=== PATIENT | female | born 1965 | race Hispanic/Latino ===

== ENCOUNTER 2018-02-03 18:23 | Observation (INO) | payer BC ==
[~2018-02-03] VITALS: Ht 162.6 cm; Wt 125.7 kg
[2018-02-03] MEDS ORDERED: MORPHINE SULFATE 2 MG/ML SYR IV STA (19:20)
[2018-02-03] MEDS ORDERED: SODIUM CHLORIDE 0.9% 1000ML 1,000 ML IV STA (19:20)
[2018-02-03] MEDS ORDERED: PROMETHAZINE 25MG/ NS 50ML (IV) IV ONE (19:30)
[2018-02-03] MEDS ORDERED: ONDANSETRON HCL INJ 2 MG/ML VIAL IV PRN (22:00)
[2018-02-03] MEDS ORDERED: CEFTRIAXONE SOD 1 GM VIAL IM ONE (22:00)
[2018-02-03] MEDS: MORPHINE SULFATE 2 MG/ML SYR IV PRN (22:25)
[2018-02-04] VITALS (9 sets, daily range): BP systolic 118–169; BP diastolic 62–78
[2018-02-04] MEDS: SODIUM CHLORIDE 0.9% 1000ML 1,000 ML IV SCH ×4 (00:26→20:34)
[2018-02-04] MEDS ORDERED: SODIUM CHLORIDE 0.9% 1000ML 1,000 ML ONE ×3 (00:33→20:39)
[2018-02-04] MEDS: MORPHINE SULFATE 2 MG/ML SYR IV PRN (04:07)
[2018-02-04] MEDS ORDERED: MORPHINE SULFATE 2 MG/ML SYR ONE (04:12)
[2018-02-04 07:30] LABS: BASOPHILS % 0.3 % (0.0-1.0); EOSINOPHILS # (AUTO) 0.2 (0.0-0.4); EOSINOPHILS % 2.7 % (0.0-6.0); HEMATOCRIT 37.1 % (34.2-44.1); HEMOGLOBIN 12.2 g/dL (12.0-16.0); LYMPHOCYTES # (AUTO) 2.9 (1.0-3.2); LYMPHOCYTES % 40.1 % (18.0-39.1); MEAN CORPUSCULAR HEMOGLOBIN 29.2 pg (28-32); MEAN CORPUSCULAR HGB CONC 32.9 g/dL (31-35); MEAN CORPUSCULAR VOLUME 88.8 fL (81-99); MONOCYTES # (AUTO) 0.5 (0.2-0.8); MONOCYTES % 6.6 % (4.4-11.3); NEUTROPHILS # (AUTO) 3.7 (2.1-6.9); PLATELET COUNT 209 x10e3/uL (140-360); RED BLOOD COUNT 4.18 x10e6/uL (3.6-5.1); RED CELL DISTRIBUTION WIDTH 13.7 % (11.7-14.4)
[2018-02-04 07:51] LABS: ANION GAP 8.8 mmol/L (8-16); BLOOD UREA NITROGEN 10 mg/dL (7-26); BUN/CREATININE RATIO 14 (6-25); CALCIUM 8.6 mg/dL (8.4-10.2); CARBON DIOXIDE 31 mmol/L (22-29); CHLORIDE 108 mmol/L (98-107); CHOL/HDL RATIO 6.1 (3.0-3.6); CHOLESTEROL 230 MD/DL (0-199); CREATININE, SERUM 0.73 mg/dL (0.57-1.11); EST GLOMERULAR FILTRATION RATE > 60 ML/MIN (60-); GLUCOSE 130 mg/dL (74-118); HDL CHOLESTEROL 38 MG/DL (40-60); LDL CHOLESTEROL 138 MG/DL (60-130); MAGNESIUM 1.9 MG/DL (1.3-2.1); PHOSPHORUS 3.8 MG/DL (2.3-4.7); POTASSIUM 4.8 mmol/L (3.5-5.1); SODIUM 143 mmol/L (136-145); TRIGLYCERIDES 269 MG/DL (0-149)
--- NOTE | 2018-02-04 08:01 | History and Physical ---
PRIMARY CARE PHYSICIAN: None CHIEF COMPLAINT: Abdominal pain. HISTORY OF PRESENT ILLNESS: This is a 52-year-old woman with a history of hypothyroidism, now developing right lower quadrant abdominal pain. The patient stated that the pain started in the right lower abdomen and radiated up around to the back ongoing for 3 days with associated nausea, vomiting and diarrhea. She admits to fever at home of 101.5. She went to the urgent care facility, and found to have a urinary tract infection. Admitted for further evaluation and management. PAST MEDICAL HISTORY: Hypothyroidism, hyperlipidemia, Saldana's palsy in . PAST SURGICAL HISTORY: times 2, pilonidal cyst removal, ankle surgery. ALLERGIES: PER ELECTRONIC MEDICAL RECORD. FAMILY HISTORY/SOCIAL HISTORY: Patient is single. She has 2 children. Occasional alcohol. No illicits or cigarettes. MEDICATIONS: Per electronic medical record. REVIEW OF SYSTEMS: Denies any dizziness or chest pain. PHYSICAL EXAMINATION VITAL SIGNS: Reviewed. GENERAL: A tired-appearing woman resting in bed. HEENT: Anicteric. Pupils respond to light. No oral lesions. Dry mucous membranes. CARDIOVASCULAR: Normal S1 and S2. LUNGS: Moderate breath sounds. ABDOMEN: Soft and nondistended. She has tenderness in the right lower quadrant. She has tenderness in the right flank on percussion. EXTREMITIES: No edema. NEUROLOGICAL: Alert and oriented times 3. Moving all extremities. SKIN: Dry. PSYCHIATRIC: Normal affect. LABS: Reviewed. MEDICATIONS: Reviewed. ASSESSMENT AND PLAN: This is a 52-year-old woman with: 1. Right-sided pyelonephritis/urinary tract infection: Will treat her with ceftriaxone and obtain cultures. The patient states that she had a fever at home. Here she has been afebrile. Will continue to follow. Give fluids as needed. 2. Fibroids: This is chronic. These are calcified. 3. Ventral hernia: Likely not related to her symptoms at this time. She can follow up outpatient for further evaluation and management. 4. Dehydration: Rehydrate. 5. Morbid obesity: Body mass index 48.1. Will screen for diabetes and obtain lipid panel. 6. Hypothyroidism: Restart home medications. 7. Prophylaxis: Will use Lovenox and Pepcid. 8. Disposition: Monitor closely. Follow up labs. Follow up cultures. Job#: [id number] [place]
[2018-02-04 08:11] LABS: THYROID STIMULATING HORMONE 8.116 uIU/mL (0.350-4.940)
[2018-02-04] MEDS: FAMOTIDINE 20 MG/2 ML VIAL IV SCH ×2 (09:44→16:34)
[2018-02-04] MEDS ORDERED: ACETAMINOPHEN 325 MG TAB PO PRN (15:45)
[2018-02-04] MEDS ORDERED: ACETAMINOPHEN 325 MG TAB PO ONE (15:45)
[2018-02-04] MEDS: ENOXAPARIN SOD INJ 40 MG/0.4 ML SYR SC SCH (16:34)
[2018-02-05] VITALS (7 sets, daily range): BP systolic 137–196; BP diastolic 63–87
[2018-02-05] MEDS: SODIUM CHLORIDE 0.9% 1000ML 1,000 ML IV SCH ×4 (03:47→22:04)
--- NOTE | 2018-02-05 08:04 | Progress Note ---
DATE: February 05, 2018 TIME: 7:34 a.m. OVERNIGHT: Feeling a little better. REVIEW OF SYSTEMS: Denies any dizziness. PHYSICAL EXAMINATION VITAL SIGNS: Reviewed. GENERAL: A tired-appearing woman resting in bed. HEENT: Anicteric. CARDIOVASCULAR: Normal S1 and S2. LUNGS: Moderate breath sounds. ABDOMEN: Soft and nondistended. She has tenderness in the right lower quadrant and right flank. EXTREMITIES: No edema. SKIN: Dry. PSYCHIATRIC: Normal affect. NEUROLOGICAL: Alert and oriented times 3. LABS: Reviewed. MEDICATIONS: Reviewed. ASSESSMENT: A 52-year-old woman with: 1. Right-sided pyelonephritis. 2. Urinary tract infection. 3. Fibroids. 4. Ventral hernia. 5. Dehydration. 6. Morbid obesity. 7. Hypothyroidism. 8. Prediabetes. 9. Hyperlipidemia. PLAN 1. Continue IV antibiotics. 2. Hemoglobin A1c is 6.3. She does have prediabetes. 3. LDL is 130. Not a goal. Will utilize statin medication. Triglycerides are 269. 4. Follow up cultures. Continue care. Job#: [id number] [place]
[2018-02-05] MEDS: LISINOPRIL 10 MG TAB PO SCH (08:30)
[2018-02-05] MEDS: FAMOTIDINE 20 MG/2 ML VIAL IV SCH ×2 (08:30→16:27)
[2018-02-05 11:00] LABS: CLARITY,URINE SL CLOUDY (CLEAR); COLOR,URINE YELLOW (YELLOW)
[2018-02-05 11:01] LABS: BILIRUBIN,URINE NEGATIVE (NEGATIVE); KETONES,URINE NEGATIVE (NEGATIVE); LEUKOCYTE ESTERASE ,URINE NEGATIVE (NEGATIVE); NITRITE,URINE NEGATIVE (NEGATIVE); PROTEIN,URINE DIPSTICK TRACE (NEGATIVE); URINE UROBILINOGEN 0.2 mg/dL (0.2 - 1)
[2018-02-05 11:04] LABS: BACTERIA,URINE RARE /HPF; EPITHELIAL CELLS,URINE FEW /LPF
[2018-02-05 11:05] LABS: AMORPHOUS SEDIMENT,URINE RARE (FEW); TRANSITIONAL EPI CELLS,URINE RARE
[2018-02-05] MEDS: CEFTRIAXONE SOD 1 GM VIAL IV SCH (14:00)
[2018-02-05] MEDS: LABETALOL HCL 100 MG TAB PO SCH ×2 (14:49→22:03)
[2018-02-05] MEDS: MORPHINE SULFATE 2 MG/ML SYR IV PRN (15:15)
[2018-02-05] MEDS: ENOXAPARIN SOD INJ 40 MG/0.4 ML SYR SC SCH (16:27)
[2018-02-05] MEDS ORDERED: LABETALOL HCL 100 MG TAB PO ONE (21:00)
[2018-02-05] MEDS: SIMVASTATIN 20 MG TAB PO SCH (22:03)
[2018-02-06] VITALS (7 sets, daily range): BP systolic 133–187; BP diastolic 80–90
[2018-02-06 07:09] LABS: BASOPHILS % 0.3 % (0.0-1.0); EOSINOPHILS # (AUTO) 0.2 (0.0-0.4); EOSINOPHILS % 1.9 % (0.0-6.0); HEMATOCRIT 38.1 % (34.2-44.1); HEMOGLOBIN 12.7 g/dL (12.0-16.0); LYMPHOCYTES # (AUTO) 2.6 (1.0-3.2); LYMPHOCYTES % 32.1 % (18.0-39.1); MEAN CORPUSCULAR HEMOGLOBIN 29.1 pg (28-32); MEAN CORPUSCULAR HGB CONC 33.3 g/dL (31-35); MEAN CORPUSCULAR VOLUME 87.2 fL (81-99); MONOCYTES # (AUTO) 0.6 (0.2-0.8); NEUTROPHILS # (AUTO) 4.7 (2.1-6.9); NEUTROPHILS % 58.3 % (38.7-80.0); PLATELET COUNT 203 x10e3/uL (140-360); RED BLOOD COUNT 4.37 x10e6/uL (3.6-5.1); RED CELL DISTRIBUTION WIDTH 13.6 % (11.7-14.4)
[2018-02-06 07:30] LABS: ANION GAP 11.5 mmol/L (8-16); BLOOD UREA NITROGEN 7 mg/dL (7-26); BUN/CREATININE RATIO 10 (6-25); CARBON DIOXIDE 29 mmol/L (22-29); CHLORIDE 105 mmol/L (98-107); CREATININE, SERUM 0.68 mg/dL (0.57-1.11); EST GLOMERULAR FILTRATION RATE > 60 ML/MIN (60-); GLUCOSE 134 mg/dL (74-118); POTASSIUM 4.5 mmol/L (3.5-5.1); SODIUM 141 mmol/L (136-145)
[2018-02-06 07:49] LABS: FREE THYROXINE INDEX 1.5288 (1.4-3.8); THYROID STIMULATING HORMONE 3.758 uIU/mL (0.350-4.940)
--- NOTE | 2018-02-06 08:34 | Progress Note ---
DATE: ADDENDUM TO PROGRESS NOTE Check labs and also check thyroid function tests in detail with a TSH. Job#: [id number]
--- NOTE | 2018-02-06 08:35 | Progress Note ---
DATE: February 06, 2018 TIME: 6:00 a.m. OVERNIGHT: Feeling a little better. REVIEW OF SYSTEMS: Denies any dizziness. PHYSICAL EXAMINATION: VITAL SIGNS: Have been reviewed. GENERAL APPEARANCE: Tired-appearing woman resting in bed. HEENT: Anicteric. CARDIOVASCULAR: Normal S1 and S2. LUNGS: Moderate breath sounds. ABDOMEN: Soft, nondistended. She has mild tenderness in the right lower quadrant and right flank. EXTREMITIES: No edema. SKIN: Dry. PSYCHIATRIC: Normal affect. NEUROLOGICAL: Alert and oriented x3. LABS: Reviewed. MEDICATIONS: Reviewed. ASSESSMENT: A 52-year-old woman. 1. Right-sided pyelonephritis. 2. Urinary tract infection. 3. Fibroid. 4. Ventral hernia. 5. Dehydration. 6. Morbid obesity. 7. Hypothyroidism. 8. Prediabetes. 9. Hyperlipidemia. PLAN: 1. Continue IV antibiotics. 2. Hemoglobin A1c 6.3, LDL 130. Continue diabetic diet. 3. Continue statin medication. 4. Continue IV ceftriaxone. 5. Continue IV fluids. 6. Patient is improving and feeling better. Discharge planning. Job#: [id number]
[2018-02-06] MEDS: FAMOTIDINE 20 MG/2 ML VIAL IV SCH ×2 (08:41→17:18)
[2018-02-06] MEDS: LISINOPRIL 10 MG TAB PO SCH (08:41)
[2018-02-06] MEDS: LABETALOL HCL 100 MG TAB PO SCH ×2 (08:41→21:49)
[2018-02-06] MEDS: SODIUM CHLORIDE 0.9% 1000ML 1,000 ML IV SCH ×2 (14:59→22:45)
[2018-02-06] MEDS: CEFTRIAXONE SOD 1 GM VIAL IV SCH (14:59)
[2018-02-06] MEDS: ENOXAPARIN SOD INJ 40 MG/0.4 ML SYR SC SCH (17:18)
[2018-02-06] MEDS: SIMVASTATIN 20 MG TAB PO SCH (21:49)
[2018-02-07] VITALS: BP 154/74
[2018-02-07 04:00] VITALS: BP 155/72
[2018-02-07] MEDS: SODIUM CHLORIDE 0.9% 1000ML 1,000 ML IV SCH (04:33)
[2018-02-07] MEDS ORDERED: SIMVASTATIN20 MG PO (06:18)
[2018-02-07] MEDS ORDERED: LISINOPRIL10 MG PO (06:18)
[2018-02-07] MEDS ORDERED: LABETALOL HCL100 MG PO (06:18)
[2018-02-07] MEDS ORDERED: KEFLEX500 MG PO (06:19)
[2018-02-07 07:59] VITALS: BP 172/72
[2018-02-07 08:03] VITALS: BP 172/72
[2018-02-07] MEDS: FAMOTIDINE 20 MG/2 ML VIAL IV SCH (08:52)
[2018-02-07] MEDS: LISINOPRIL 10 MG TAB PO SCH (08:53)
[2018-02-07] MEDS: LABETALOL HCL 100 MG TAB PO SCH (08:53)
--- NOTE | 2018-02-10 07:42 | Discharge Summary ---
PRINCIPAL DIAGNOSES 1. Right-sided pyelonephritis. 2. Urinary tract infection. 3. Fibroid. 4. Ventral hernia. 5. Dehydration. 6. Morbid obesity. 7. Prediabetes. SECONDARY DIAGNOSIS: Hyperlipidemia. CHIEF COMPLAINT: Right-sided flank pain. HISTORY OF PRESENT ILLNESS: A 52-year-old woman with right-sided flank pain. Refer to the H and P for further details. HOSPITAL COURSE: The patient was found to have right-sided pyelonephritis and urinary tract infection treated with IV antibiotics. Had prediabetes. Hemoglobin A1c was 6.3, LDL 130 and treated with diabetic diet. Antibiotics were utilized in the hospitalization with IV ceftriaxone. The patient also received IV fluids. Did well and subsequently transitioned out of the hospital. DISCHARGE MEDICATIONS: Per electronic medical record. FOLLOWUP: Primary care doctor in 1 week. CONDITION ON DISCHARGE: Stable and improving. DISCHARGE LOCATION: Home. CHASITY VEE MD Job#: [id number] [place]
== END 2018-02-07 10:35 | disposition home or self-care (01) ==
LOC: FSED 18:23 → IMCU 02-04 00:13 → MED/SURG 02-06 09:38
PROVIDERS: ADMIT Internal Medicine; ATTEND Internal Medicine
DX: N10 Acute pyelonephritis (principal); E86.0 Dehydration; E03.9 Hypothyroidism, unspecified; E78.5 Hyperlipidemia, unspecified; K43.9 Ventral hernia without obstruction or gangrene; E66.01 Morbid (severe) obesity due to excess calories; Z68.42 Body mass index [BMI] 45.0-49.9, adult; R73.09 Other abnormal glucose; J84.10 Pulmonary fibrosis, unspecified
CPT/HCPCS: 36415 ×2; 74177; 76830; 80048 ×2; 80053; 80061; 81001; 81003; 83036; 83735; 84100; 84436; 84443 ×2; 84479; 85025 ×3; 87086; 96360; 96365; 96374; 99284; G0378 ×4; J0696 ×3; J1650 ×3; J2270 ×3; J2405; J2550; J7030 ×5

== ENCOUNTER 2018-09-13 20:26 | Emergency (ER) | payer BC ==
[~2018-09-13] VITALS: Ht 162.6 cm; Wt 125.6 kg
[~2018-09-13 20:26] MED LIST: KEFLEX500 MG PO; LABETALOL HCL100 MG PO; LISINOPRIL10 MG PO; SIMVASTATIN20 MG PO
--- OUTSIDE RECORDS SUMMARY | 2018-09-13 20:29 | XMS REPORT | Continuity of Care Document ---
Author Author [facility] Interface Address Unknown Phone Unavailable Problems Problem Status Onset Date Classification Date Reported Comments Source Pain in Throat 12/19/2017 Problem 12/19/2017 [facility] Influenza-like Symptoms 12/19/2017 Problem 12/19/2017 [facility] Ear Pressure Sensation 12/19/2017 Problem 12/19/2017 [facility] Elevated Blood-pressure Reading without Diagnosis of Hypertension 12/19/2017 Problem 12/19/2017 [facility] Body Mass Index 40+ - Severely Obese 12/19/2017 Problem 12/19/2017 [facility] Influenza-like symptoms 12/19/2017 Diagnosis 12/19/2017 [facility] Pain in throat 12/19/2017 Diagnosis 12/19/2017 [facility] Ear pressure sensation 12/19/2017 Diagnosis 12/19/2017 [facility] Elevated blood-pressure reading without diagnosis of hypertension 12/19/2017 Diagnosis 12/19/2017 [facility] Body mass index 40+ - severely obese 12/19/2017 Diagnosis 12/19/2017 [facility] Hypothyroidism Problem 12/19/2017 [facility] Hyperlipidemia Problem 12/19/2017 [facility] Gastroesophageal Reflux Disease Problem 12/19/2017 [facility] Abdominal pain Active Problem 02/07/2018 [facility] Intractable vomiting Active Problem 02/07/2018 [facility] Medications Medication Details Route Status Patient Instructions Ordering Provider Order Date Source Cephalexin Monohydrate (Keflex) 500 Mg Capsule Every 12 Hours Active Artemio 02/07/2018 [facility] Labetalol Hcl 100 Mg Tablet Every 12 Hours Active Artemio 02/07/2018 [facility] Lisinopril 10 Mg Tablet Daily Active Artemio 02/07/2018 [facility] Simvastatin 20 Mg Tablet Bedtime Active Artemio 02/07/2018 [facility] atorvastatin 80 MG Oral Tablet atorvastatin 80 mg tablet Active [facility] benzonatate 200 MG Oral Capsule benzonatate 200 mg capsule Take 1 capsule 3 times a day by oral route as needed. Active [facility] Fenofibrate 54 MG Oral Tablet fenofibrate 54 mg tablet Active [facility] Levothyroxine Sodium 0.025 MG Oral Tablet levothyroxine 25 mcg tablet Active [facility] Lidocaine Hydrochloride 20 MG/ML Mucous Membrane Topical Solution Lidocaine Viscous 2 % mucosal solution Take 15 mL every 3 hours by oral route as needed. Active [facility] Omeprazole 20 MG Delayed Release Oral Capsule omeprazole 20 mg capsule,delayed release Active [facility] Allergies, Adverse Reactions, Alerts Substance Category Reaction Severity Reaction type Status Date Reported Comments Source Immunizations Immunization Date Given Site Status Last Updated Comments Source Results Order Name Results Value Reference Range Date Interpretation Comments Source RESULT negative 12/19/2017 [facility] SWAB LOCATION Left and Right tonsillar pillars 12/19/2017 [facility] Influenza A negative 12/19/2017 [facility] Influenza B negative 12/19/2017 [facility] Vital Signs Vital Sign Value Date Comments Source Diastolic (mm Hg) 80 12/19/2017 [facility] Height 64 12/19/2017 [facility] Systolic (mm Hg) 158 12/19/2017 [facility] Weight 278 12/19/2017 [facility] Encounters Location Location Details Encounter Type Encounter Number Reason For Visit Attending Provider ADM Date DC Date Status Source [place] - [facility] - [id number] Leonard, [facility]: [address] [place] [address], Ph. [id number] Nadia Leonard 12/19/2017 [facility] Discharged Inpatient (obs) [id number] CHASITY VEE MD 02/04/2018 02/07/2018 [facility] Procedures Procedure Code Date Perfomer Comments Source [facility]
--- OUTSIDE RECORDS SUMMARY | 2018-09-13 20:29 | XMS REPORT | Encounter Summary ---
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 Influenza-like symptoms benzonatate 200 mg capsule rapid flu (A+B) 2. Pain in throat sore throat: care instructions Lidocaine Viscous 2 % mucosal solution rapid strep group A, throat 3. Ear pressure sensation 4. Elevated blood-pressure reading without diagnosis of hypertension 5. Body mass index 40+ - severely obese Discussion Note Pt is in NAD; Verbalizes understanding of all instructions with no questions at this time. Plan of Care Patient Instructions Gargle and spit viscous lidocaine as needed for sore throat as directed. Take tylenol over the counter for pain/headache/fever as per pacakge insert. Take benzonatate for cough as directed. Take fluticasone as needed for congestion. [place] one spray in each nostril twice a day. Take a warm, steamy shower, blow your nose thereafter, and spray in each nostril. Tilt your head up for about 10 seconds and breath through your mouth. Do not sniff or snort the medication in or else the medication will go to your throat and not be absorbed appropriately. Take levocetirizine for allergy like symptoms like runny nose, sneezing and watery eyes. Take medications as prescribed and follow up with a PCP within 2-3 if symptoms worsen as discussed. Recommend monitor BP at home and document, bring BP log to PCP for review. Recommend follow a low sodium diet and exercise 30-45 mins/d 3-4 days a week onces symptoms resolve Reminders Provider Appointments None recorded. Lab Rapid Flu (A+B) 12/19/2017 [facility] Rapid Strep Group a, Throat 12/19/2017 [facility] Referral None recorded. Procedures None recorded. Surgeries None recorded. Imaging None recorded. Medications Name Start Date atorvastatin 80 mg tablet benzonatate 200 mg capsule Take 1 capsule 3 times a day by oral route as needed. fenofibrate 54 mg tablet levothyroxine 25 mcg tablet Lidocaine Viscous 2 % mucosal solution Take 15 mL every 3 hours by oral route as needed. omeprazole 20 mg capsule,delayed release Medications Administered None recorded. Vitals Height Weight BMI Blood Pressure 5 ft 4 in 278 lbs 47.7 kg/m2 (1) 160/85 mm[Hg] (2) 158/80 mm[Hg] Lab Results Date Name Specimen Result Interpretation Description Value Range Status Address Rapid Strep Group a, Throat Result negative [facility]: [address] [place] [address] Swab Location Left and Right tonsillar pillars [facility]: [address] [place] [address] Rapid Flu (A+B) Influenza a negative [facility]: [address] [place] [address] Influenza B negative [facility]: [address] [place] [address] Allergies Code Code System Name Reaction Severity Status Onset NKDA Problems Name Status Onset Date Source Pain in Throat Active 12/19/2017 Influenza-like Symptoms Active 12/19/2017 Ear Pressure Sensation Active 12/19/2017 Elevated Blood-pressure Reading without Diagnosis of Hypertension Active 12/19/2017 Body Mass Index 40+ - Severely Obese Active 12/19/2017 Hypothyroidism Active Hyperlipidemia Active Gastroesophageal Reflux Disease Active Procedures Date Name Performed by Information not available Vaccine List None recorded. Social History Smoking Status Never Smoker Past Encounters 12/19/2017 Influenza-like Symptoms; Pain in Throat; Ear Pressure Sensation; Elevated Blood- pressure Reading without Diagnosis of Hypertension; Body Mass Index 40+ - Severely Obese Nadia Leonard, [facility]: [address] [place] [address], Ph. History of Present Illness [id number] Reported By: Patient HPI: Quality: symptoms worse during the day. Duration: 2 days. Severity: highest temperature 99.1. Onset/Timing: first recorded today in clinic. Context: no ill contacts, no tick/insect bites, no recent travel, no new medications. Associated Symptoms: no headache, no muscle aches, no rash, no lethargy, fever/chills, cough, nasal passage blockage (stuffiness), nasal discharge; sinus pressure, post nasal drip, B/L ear pressure, sore throat, chest congestion, and body aches. Modifying Factors nothing gives relief Ear Complaint Reported By: Patient HPI: Location: bilateral. Quality: ears feel full/plugged, muffled. Severity: continuous, moderate. Duration: constant; x 2 days. Onset/Timing: worse, still present, gradual. Context: no sick contacts, no recent swimming/water in ear, no exposure to second hand smoke, no head trauma, not grinding teeth, no recent air travel. Modifying factors: does not hurt to lie on, or pull on ear, does not hurt to chew, nothing gives relief. Associated Symptoms: no discharge from the ears, no hearing loss, no ringing in the ears, no earache, no dizziness, no vertigo, no headache, no muscle aches, nose/sinus problems, popping noise in the ears, fever, chills; rhinorrhea, post nasal drip, B/L ear pressure, sore throat, chest congestion, and dry cough, body aches Review of Systems:ROS as noted in the HPI Review of Systems Basic Reported By: Patient Physical Exam Adult Basic, Adult Female Complete Reported By: Patient Constitutional: General Appearance: obese. Level of Distress: NAD. Ambulation: ambulating normally Psychiatric: Mental Status: active and alert. Orientation: to time, to place, to person [id number]-Throat: Ears: no lesions on external ear, no outer ear tenderness, EACs clear, TMs clear. Hearing: no hearing loss. Nose: no lesions on external nose, nares patent, no septal deviation, nasal passages clear, no sinus tenderness, nasal discharge--rhinorrhea, post nasal drip; pink and edematous nasal turbinates bilaterally. Lips, Teeth, and Gums: no mouth or lip ulcers, no bleeding gums, normal dentition. Oropharynx: moist mucous membranes, no erythema, no exudates, tonsils not enlarged Neck: Lymph Nodes: no cervical LAD Lungs: Respiratory effort: no dyspnea, no tachypnea, no use of accessory muscles, no intercostal retractions. Auscultation: breath sounds normal Cardiovascular: Heart Auscultation: RRR, no murmurs Neurologic: Gait and Station: normal gait, normal station
[2018-09-13] MEDS ORDERED: KETOROLAC TROMETHAMINE 60 MG/2 ML VIAL IM ONE (21:00)
--- NOTE | 2018-09-13 21:45 | Diagnostic Imaging Report ---
EXAM: CT Abdomen and Pelvis WITHOUT contrast INDICATION: Left flank pain for 2 to 3 days. ^[id number] ^[id number] COMPARISON: None. TECHNIQUE: Abdomen and pelvis were scanned utilizing a multidetector helical scanner from the lung base to the pubic symphysis without administration of IV contrast. Absence of intravenous contrast decreases sensitivity for detection of focal lesions and vascular pathology. Coronal and sagittal reformations were obtained. Routine protocol was performed. IV CONTRAST: None ORAL CONTRAST: Water COMPLICATIONS: None RADIATION DOSE: Total DLP: 835.9 mGy*cm Estimated effective dose: (DLP x 0.015 x size factor) mSv CTDIvol has been reviewed. It is below the limits set by the Radiation Protocol Committee (RPC). Dose modulation, iterative reconstruction, and/or weight based adjustment of the mA/kV was utilized to reduce the radiation dose to as low as reasonably achievable. FINDINGS: LINES and TUBES: None. LOWER THORAX: Unremarkable HEPATOBILIARY: Hypoattenuation of the liver measuring 27 Hounsfield units, compatible with steatosis. No focal hepatic lesions. No biliary ductal dilation. GALLBLADDER: Not well-visualized, possibly contracted. SPLEEN: No splenomegaly. PANCREAS: No focal masses or ductal dilatation. ADRENALS: No adrenal nodules KIDNEYS/URETERS: No hydronephrosis. No cystic or solid mass lesions. No stones. GI TRACT: No abnormal distention, wall thickening, or evidence of bowel obstruction. There are diverticula within the colon without evidence of diverticulitis. Appendix is normal. PELVIC ORGANS/BLADDER: Unremarkable. LYMPH NODES: No lymphadenopathy. VESSELS: Unremarkable. PERITONEUM / RETROPERITONEUM: No free air or fluid. BONES: There are degenerative changes in the lumbar spine. SOFT TISSUES: Fat-containing infraumbilical hernia 3.9 x 4.4 x 4.9 cm sac and 1.5 x 2 cm neck without stranding to suggest granulation. No bowel seen within. IMPRESSION: No acute abnormalities. Hepatic steatosis. Colonic diverticulosis. Signed by: DR. Garret Escobar MD on 09/13/2018 9:42 PM
[2018-09-13] MEDS ORDERED: KETOROLAC TROMETHAMINE 30 MG/ML VIAL IM STA (22:04)
[2018-09-13] MEDS ORDERED: KETOROLAC TROME10 MG PO (22:07)
[2018-09-13] MEDS ORDERED: ROBAXIN-750750 MG PO (22:07)
[2018-09-13 22:19] VITALS: BP 172/86
== END 2018-09-13 22:22 | disposition home or self-care (01) ==
LOC: FSED 20:26
DX: M54.5 Low back pain (principal); R31.9 Hematuria, unspecified; N20.0 Calculus of kidney; S39.012A Strain of muscle, fascia and tendon of lower back, initial encounter
CPT/HCPCS: 74176; 81003; 81025; 99283

== ENCOUNTER 2019-02-10 19:00 | Emergency (ER) | payer BC ==
[~2019-02-10] VITALS: Ht 162.6 cm; Wt 126.1 kg
[~2019-02-10 19:00] MED LIST changes: +KETOROLAC TROME10 MG PO; +ROBAXIN-750750 MG PO
--- OUTSIDE RECORDS SUMMARY | 2019-02-10 19:03 | XMS REPORT | Continuity of Care Document ---
Author Author [facility] Interface Address Unknown Phone Unavailable [...] Problem 12/19/2017 [facility] Abdominal pain Active Problem 09/14/2018 [facility] Intractable vomiting Active Problem 09/14/2018 [facility] Intractable vomiting Active Problem 02/07/2018 [facility] Medications Medication Details Route Status Patient Instructions Ordering Provider Order Date Source Ketorolac Tromethamine (Toradol) 10 Mg Tablet Every 6 Hours as needed for Pain Active Xavi 09/13/2018 [facility] Methocarbamol (Robaxin-750) 750 Mg Tablet Three Times A Day as needed for Yoly Active Xavi 09/13/2018 [facility] Cephalexin Monohydrate (Keflex) 500 Mg Capsule Every 12 Hours Active Artemio 02/07/2018 [facility] Labetalol Hcl 100 Mg Tablet Every 12 Hours Active Artemio 02/07/2018 [facility] Lisinopril 10 Mg Tablet Daily Active [facility] 02/07/2018 [facility] Simvastatin 20 Mg Tablet Bedtime Active [facility] 02/07/2018 [facility] Cephalexin Monohydrate (Keflex) 500 Mg Capsule Every 12 Hours Active [facility] 02/07/2018 [facility] Labetalol Hcl 100 Mg Tablet Every 12 Hours Active [facility] 02/07/2018 [facility] Lisinopril 10 Mg Tablet Daily Active [facility] 02/07/2018 [facility] Simvastatin 20 Mg Tablet Bedtime Active [facility] 02/07/2018 [facility] atorvastatin 80 MG Oral Tablet atorvastatin 80 [...] Value Reference Range Date Interpretation Comments Source Blood leukocytes automated count (number/volume) 7.97 4.8 - 10.8 02/06/2018 [facility] Blood erythrocytes automated count (number/volume) 4.37 3.6 - 5.1 02/06/2018 [facility] Blood hemoglobin measurement (moles/volume) 12.7 12.0 - 16.0 02/06/2018 [facility] Automated blood hematocrit (volume fraction) 38.1 34.2 - 44.1 02/06/2018 [facility] Automated erythrocyte mean corpuscular volume 87.2 81 - 99 02/06/2018 [facility] Automated erythrocyte mean corpuscular hemoglobin (mass per erythrocyte) 29.1 28 - 32 02/06/2018 [facility] Automated erythrocyte mean corpuscular hemoglobin concentration measurement (mass/volume) 33.3 31 - 35 02/06/2018 [facility] RDW BldCo-Rto 13.6 11.7 - 14.4 02/06/2018 [facility] Automated blood platelet count (count/volume) 203 140 - 360 02/06/2018 [facility] Automated blood segmented neutrophil count as percentage of total leukocytes 58.3 38.7 - 80.0 02/06/2018 [facility] Automated blood lymphocyte count as percentage ot total leukocytes 32.1 18.0 - 39.1 02/06/2018 [facility] Automated blood monocyte count as percentage of total leukocytes 7.0 4.4 - 11.3 02/06/2018 [facility] Automated blood eosinophil count as percentage of total leukocytes 1.9 0.0 - 6.0 02/06/2018 [facility] Automated blood basophil count as percentage of total leukocytes 0.3 0.0 - 1.0 02/06/2018 [facility] IM GRANULOCYTES % 0.4 0.0 - 1.0 02/06/2018 [facility] Automated blood neutrophil count 4.7 2.1 - 6.9 02/06/2018 [facility] Blood lymphocytes count (number/volume) 2.6 1.0 - 3.2 02/06/2018 [facility] Blood monocytes automated count (number/volume) 0.6 0.2 - 0.8 02/06/2018 [facility] Automated blood eosinophil count 0.2 0.0 - 0.4 02/06/2018 [facility] Automated blood basophil count (count/volume) 0.0 0.0 - 0.1 02/06/2018 [facility] Absolute Immature Granulocyte (auto 0.03 0 - 0.1 02/06/2018 [facility] Serum or plasma sodium measurement (moles/volume) 141 136 - 145 02/06/2018 [facility] Serum or plasma potassium measurement (moles/volume) 4.5 3.5 - 5.1 02/06/2018 [facility] Serum or plasma chloride measurement (moles/volume) 105 98 - 107 02/06/2018 [facility] Serum or plasma carbon dioxide, total measurement (moles/volume) 29 22 - 29 02/06/2018 [facility] Serum or plasma anion gap 11.5 8 - 16 02/06/2018 [facility] Serum or plasma urea nitrogen measurement (mass/volume) 7 7 - 26 02/06/2018 [facility] Serum or plasma creatinine measurement (mass/volume) 0.68 0.57 - 1.11 02/06/2018 [facility] Serum or plasma urea nitrogen/creatinine mass ratio 10 6 - 25 02/06/2018 [facility] Estimated glomerular filtration rate (GFR) determination > 60 60 02/06/2018 [facility] Glucose measurement 134 74 - 118 02/06/2018 [facility] Serum or plasma calcium measurement (mass/volume) 9.0 8.4 - 10.2 02/06/2018 [facility] Free thyroxine index 1.5288 1.4 - 3.8 02/06/2018 [facility] Serum or plasma thyroxine (T4) measurement (mass/volume) 5.88 4.5 - 10.9 02/06/2018 [facility] Serum or plasma triiodothyronine resin uptake (T3RU) 26.00 22.5 - 37.0 02/06/2018 [facility] Serum or plasma thyrotropin measurement by detection limit <=0.005 miu/l (units/volume) 3.758 0.350 - 4.940 02/06/2018 [facility] Automated blood basophil count (count/volume) Automated blood basophil count (count/volume) 0.0 0.0 - 0.1 02/06/2018 [facility] Automated blood basophil count as percentage of total leukocytes Automated blood basophil count as percentage of total leukocytes 0.3 0.0 - 1.0 02/06/2018 [facility] Automated blood eosinophil count Automated blood eosinophil count 0.2 0.0 - 0.4 02/06/2018 [facility] Automated blood eosinophil count as percentage of total leukocytes Automated blood eosinophil count as percentage of total leukocytes 1.9 0.0 - 6.0 02/06/2018 [facility] Automated blood hematocrit (volume fraction) Automated blood hematocrit (volume fraction) 38.1 34.2 - 44.1 02/06/2018 [facility] Automated blood lymphocyte count as percentage ot total leukocytes Automated blood lymphocyte count as percentage ot total leukocytes 32.1 18.0 - 39.1 02/06/2018 [facility] Automated blood monocyte count as percentage of total leukocytes Automated blood monocyte count as percentage of total leukocytes 7.0 4.4 - 11.3 02/06/2018 [facility] Automated blood neutrophil count Automated blood neutrophil count 4.7 2.1 - 6.9 02/06/2018 [facility] Automated blood platelet count (count/volume) Automated blood platelet count (count/volume) 203 140 - 360 02/06/2018 [facility] Automated blood segmented neutrophil count as percentage of total leukocytes Automated blood segmented neutrophil count as percentage of total leukocytes 58.3 38.7 - 80.0 02/06/2018 [facility] Automated erythrocyte mean corpuscular hemoglobin (mass per erythrocyte) Automated erythrocyte mean corpuscular hemoglobin (mass per erythrocyte) 29.1 28 - 32 02/06/2018 [facility] Automated erythrocyte mean corpuscular hemoglobin concentration measurement (mass/volume) Automated erythrocyte mean corpuscular hemoglobin concentration measurement (mass/volume) 33.3 31 - 35 02/06/2018 [facility] Automated erythrocyte mean corpuscular volume Automated erythrocyte mean corpuscular volume 87.2 81 - 99 02/06/2018 [facility] Blood erythrocytes automated count (number/volume) Blood erythrocytes automated count (number/volume) 4.37 3.6 - 5.1 02/06/2018 [facility] Blood hemoglobin measurement (moles/volume) Blood hemoglobin measurement (moles/volume) 12.7 12.0 - 16.0 02/06/2018 [facility] Blood leukocytes automated count (number/volume) Blood leukocytes automated count (number/volume) 7.97 4.8 - 10.8 02/06/2018 [facility] Blood lymphocytes count (number/volume) Blood lymphocytes count (number/volume) 2.6 1.0 - 3.2 02/06/2018 [facility] Blood monocytes automated count (number/volume) Blood monocytes automated count (number/volume) 0.6 0.2 - 0.8 02/06/2018 [facility] Estimated glomerular filtration rate (GFR) determination Estimated glomerular filtration rate (GFR) determination null 60 02/06/2018 [facility] Free thyroxine index Free thyroxine index 1.5288 1.4 - 3.8 02/06/2018 [facility] Glucose measurement Glucose measurement 134 74 - 118 02/06/2018 [facility] Serum or plasma anion gap Serum or plasma anion gap 11.5 8 - 16 02/06/2018 [facility] Serum or plasma calcium measurement (mass/volume) Serum or plasma calcium measurement (mass/volume) 9.0 8.4 - 10.2 02/06/2018 [facility] Serum or plasma carbon dioxide, total measurement (moles/volume) Serum or plasma carbon dioxide, total measurement (moles/volume) 29 22 - 29 02/06/2018 [facility] Serum or plasma chloride measurement (moles/volume) Serum or plasma chloride measurement (moles/volume) 105 98 - 107 02/06/2018 [facility] Serum or plasma creatinine measurement (mass/volume) Serum or plasma creatinine measurement (mass/volume) 0.68 0.57 - 1.11 02/06/2018 [facility] Serum or plasma potassium measurement (moles/volume) Serum or plasma potassium measurement (moles/volume) 4.5 3.5 - 5.1 02/06/2018 [facility] Serum or plasma sodium measurement (moles/volume) Serum or plasma sodium measurement (moles/volume) 141 136 - 145 02/06/2018 [facility] Serum or plasma thyrotropin measurement by detection limit <=0.005 miu/l (units/volume) Serum or plasma thyrotropin measurement by detection limit <=0.005 miu/l (units/volume) 3.758 0.350 - 4.940 02/06/2018 [facility] Serum or plasma thyroxine (T4) measurement (mass/volume) Serum or plasma thyroxine (T4) measurement (mass/volume) 5.88 4.5 - 10.9 02/06/2018 [facility] Serum or plasma triiodothyronine resin uptake (T3RU) Serum or plasma triiodothyronine resin uptake (T3RU) 26.00 22.5 - 37.0 02/06/2018 [facility] Serum or plasma urea nitrogen measurement (mass/volume) Serum or plasma urea nitrogen measurement (mass/volume) 7 7 - 26 02/06/2018 [facility] Serum or plasma urea nitrogen/creatinine mass ratio Serum or plasma urea nitrogen/creatinine mass ratio 10 6 - 25 02/06/2018 [facility] Urine color determination YELLOW YELLOW 02/05/2018 [facility] Urine clarity SL CLOUDY CLEAR 02/05/2018 [facility] Specific gravity of Urine by Test strip 1.025 1.010 - 1.025 02/05/2018 [facility] Urine pH measurement by automated test strip 7 5 - 7 02/05/2018 [facility] Urine leukocyte esterase detection by dipstick NEGATIVE NEGATIVE 02/05/2018 [facility] Urine nitrite detection NEGATIVE NEGATIVE 02/05/2018 [facility] Urine protein measurement by test strip (mass/volume) TRACE NEGATIVE 02/05/2018 [facility] Urine glucose detection NEGATIVE NEGATIVE 02/05/2018 [facility] Urine ketones detection by automated test strip NEGATIVE NEGATIVE 02/05/2018 [facility] Urine urobilinogen measurement by test strip (mass/volume) 0.2 0.2 - 1 02/05/2018 [facility] Urine total bilirubin measurement (mass/volume) NEGATIVE NEGATIVE 02/05/2018 [facility] Urine erythrocytes detection 1+ NEGATIVE 02/05/2018 [facility] Automated urine sediment leukocyte count by microscopy (number/high power field) NONE 0 - 5 02/05/2018 [facility] Erythrocytes detection in urine sediment by light microscopy 6-10 0 - 5 02/05/2018 [facility] Bacteria detection in urine sediment by light microscopy RARE NONE 02/05/2018 [facility] Epithelial cells detection in urine sediment by light microscopy FEW NONE 02/05/2018 [facility] Transitional cells detection in urine sediment by light microscopy RARE NONE 02/05/2018 [facility] Amorphous sediment detection in urine sediment by light microscopy RARE FEW 02/05/2018 [facility] Amorphous sediment detection in urine sediment by light microscopy Amorphous sediment detection in urine sediment by light microscopy RARE FEW 02/05/2018 [facility] Automated urine sediment leukocyte count by microscopy (number/high power field) Automated urine sediment leukocyte count by microscopy (number/high power field) NONE 0 - 5 02/05/2018 [facility] Bacteria detection in urine sediment by light microscopy Bacteria detection in urine sediment by light microscopy RARE NONE 02/05/2018 [facility] Epithelial cells detection in urine sediment by light microscopy Epithelial cells detection in urine sediment by light microscopy FEW NONE 02/05/2018 [facility] Erythrocytes detection in urine sediment by light microscopy Erythrocytes detection in urine sediment by light microscopy null 0 - 5 02/05/2018 [facility] Specific gravity of Urine by Test strip Specific gravity of Urine by Test strip 1.025 1.010 - 1.025 02/05/2018 [facility] Transitional cells detection in urine sediment by light microscopy Transitional cells detection in urine sediment by light microscopy RARE NONE 02/05/2018 [facility] Urine clarity Urine clarity SL CLOUDY CLEAR 02/05/2018 [facility] Urine color determination Urine color determination YELLOW YELLOW 02/05/2018 [facility] Urine erythrocytes detection Urine erythrocytes detection 1+ NEGATIVE 02/05/2018 [facility] Urine glucose detection Urine glucose detection NEGATIVE NEGATIVE 02/05/2018 [facility] Urine ketones detection by automated test strip Urine ketones detection by automated test strip NEGATIVE NEGATIVE 02/05/2018 [facility] Urine leukocyte esterase detection by dipstick Urine leukocyte esterase detection by dipstick NEGATIVE NEGATIVE 02/05/2018 [facility] Urine nitrite detection Urine nitrite detection NEGATIVE NEGATIVE 02/05/2018 [facility] Urine pH measurement by automated test strip Urine pH measurement by automated test strip 7 5 - 7 02/05/2018 [facility] Urine protein measurement by test strip (mass/volume) Urine protein measurement by test strip (mass/volume) TRACE NEGATIVE 02/05/2018 [facility] Urine total bilirubin measurement (mass/volume) Urine total bilirubin measurement (mass/volume) NEGATIVE NEGATIVE 02/05/2018 [facility] Urine urobilinogen measurement by test strip (mass/volume) Urine urobilinogen measurement by test strip (mass/volume) 0.2 0.2 - 1 02/05/2018 [facility] Phosphorus measurement 3.8 2.3 - 4.7 02/04/2018 [facility] Serum or plasma magnesium measurement (mass/volume) 1.9 1.3 - 2.1 02/04/2018 [facility] Serum or plasma triglyceride measurement (mass/volume) 269 0 - 149 02/04/2018 [facility] Serum or plasma cholesterol measurement (mass/volume) 230 0 - 199 02/04/2018 [facility] Serum or plasma cholesterol in LDL measurement (mass/volume) 138 60 - 130 02/04/2018 [facility] Serum or plasma cholesterol in HDL measurement (mass/volume) 38 40 - 60 02/04/2018 [facility] Serum or plasma total cholesterol/cholesterol in HDL mass ratio 6.1 3.0 - 3.6 02/04/2018 [facility] Phosphorus measurement Phosphorus measurement 3.8 2.3 - 4.7 02/04/2018 [facility] Serum or plasma cholesterol in HDL measurement (mass/volume) Serum or plasma cholesterol in HDL measurement (mass/volume) 38 40 - 60 02/04/2018 [facility] Serum or plasma cholesterol in LDL measurement (mass/volume) Serum or plasma cholesterol in LDL measurement (mass/volume) 138 60 - 130 02/04/2018 [facility] Serum or plasma cholesterol measurement (mass/volume) Serum or plasma cholesterol measurement (mass/volume) 230 0 - 199 02/04/2018 [facility] Serum or plasma magnesium measurement (mass/volume) Serum or plasma magnesium measurement (mass/volume) 1.9 1.3 - 2.1 02/04/2018 [facility] Serum or plasma total cholesterol/cholesterol in HDL mass ratio Serum or plasma total cholesterol/cholesterol in HDL mass ratio 6.1 3.0 - 3.6 02/04/2018 [facility] Serum or plasma triglyceride measurement (mass/volume) Serum or plasma triglyceride measurement (mass/volume) 269 0 - 149 02/04/2018 [facility] Hemoglobin A1c Percent 6.3 4.0 - 7.0 02/04/2018 [facility] RESULT negative 12/19/2017 [facility] SWAB LOCATION Left [...] Date Status Source [place] - [facility] - [id number] Leonard, [facility]: [id number] [place] [address], Ph. [id number] Nadia Blantony 12/19/2017 [facility] Discharged Inpatient (obs) [id number] CHASITY VEE MD 02/04/2018 02/07/2018 [facility] Departed Emergency Room [id number] DOMENICA DALAL MD 09/13/2018 09/13/2018 [facility] Procedures Procedure Code Date Perfomer Comments Source [facility]
--- OUTSIDE RECORDS SUMMARY | 2019-02-10 19:03 | XMS REPORT | Summary of Care ---
Author Author JOSE OTOOLE, CORWIN Kim Unknown Address Unknown Phone Unavailable Care Team Providers Care Cook Pressure Name Role Phone PAUL OGDEN M.D. 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 Other synovitis and tenosynovitis, right ankle and foot (727.06, M65.871) Status: Active Fracture of fibula, distal, right, closed (824.8, S82.831A) Status: Active Avulsion fracture of lateral malleolus of right fibula, closed, with routine healing, subsequent encounter (V54.19, S82.61XD) Status: Active Right shoulder pain (719.41, M25.511) Status: Active Fall (E888.9, W19.XXXA) Status: Active 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 * Start : 13-Jun-2016 Active Allergies and Adverse Reactions Name Dates Details No Known Drug Allergies (Allergy) Status: Active Past Medical History Name Dates Details History of hyperlipidemia (V12.29, Z86.39) Status: Resolved History of stroke (V12.54, Z86.73) Status: Resolved History of thyroid nodule (V12.29, Z86.39) Status: Resolved Procedures Procedure Dates Details History of Ankle surgery Completed Immunization Name Dates Details Immunizations not documented Social History Name Dates Details - Status: Name Dates Details Never smoker Vital Signs Date Test Result Details :36 BP Systolic 143 mm[Hg] Status: BP Diastolic 87 mm[Hg] Status: Height 64 in Status: Weight 272 lb Status: Body Mass Index Calculated 46.69 kg/m2 Status: Body Surface Area Calculated 2.23 m2 Status: Temperature 97.9 f Status: Heart Rate 73 /min Status: :31 BP Systolic 159 mm[Hg] Status: BP Diastolic 89 mm[Hg] Status: Weight 280 lb Status: Body Mass Index Calculated 48.06 kg/m2 Status: Body Surface Area Calculated 2.26 m2 Status: Temperature 97.7 f Status: Heart Rate 70 /min Status: Results Date Description Value Details Results not documented Plan of Care Name Dates Details Planned Observations Planned Goals not documented Interventions Provided Plan* Plan: FU w ortho regarding PT order * Ok to continue work at full duty. Instructions Name Dates Details Instructions not documented Encounters Appointment; KATYA FIGUEROA M.D. Encounter Diagnosis: Problem not documented On: 02-Jan-2017 8:45 Appointment; KATYA FIGUEROA M.D. Encounter Diagnosis: Problem not documented On: 16-Jan-2017 9:00 Appointment; KATYA FIGUEROA M.D. Encounter Diagnosis: Problem not documented On: 23-Jan-2017 13:30 Appointment; KATYA FIGUEROA M.D. Encounter Diagnosis: Problem not documented On: 01-Feb-2017 9:00 Appointment; KATYA FIGUEROA M.D. Encounter Diagnosis: Problem not documented On: 18-Feb-2017 13:30 Appointment; KATYA FIGUEROA M.D. Encounter Diagnosis: Problem not documented On: 20-Mar-2017 10:45 Appointment; KATYA FIGUEROA M.D. Encounter Diagnosis: Problem not documented On: 01-May-2017 8:00 Appointment; KATYA FIGUEROA M.D. Encounter Diagnosis: Problem not documented On: 29-Jul-2017 8:00 Appointment; KATYA FIGUEROA M.D. Encounter Diagnosis: Problem not documented On: 31-Jul-2017 8:00 Appointment; ANDREW DEL REAL M.D. Encounter Diagnosis: Problem not documented On: 25-Mar-2018 15:30 Appointment; PAUL OGDEN M.D. Encounter Diagnosis: Problem not documented On: 25-Jun-2018 9:30 Appointment; CORWIN GARCIA ANP-C Encounter Diagnosis: Problem not documented On: 07-Aug-2018 7:40 Appointment; CORWIN GARCIA ANP-C Encounter Diagnosis: Problem not documented On: 13-Aug-2018 8:20 Appointment; ABBEY GRANDE P.A. Encounter Diagnosis: Problem not documented On: 19-Aug-2018 9:00 Appointment; CORWIN GARCIA ANP-C Encounter Diagnosis: Problem not documented On: 21-Aug-2018 8:00 Appointment; ABBEY GRANDE P.A. Encounter Diagnosis: Problem not documented On: 02-Sep-2018 9:00 Appointment; CORWIN GARCIA ANP-C Encounter Diagnosis: Problem not documented On: 02-Sep-2018 12:00 Appointment; CORWIN GARCIA ANP-C Encounter Diagnosis: Problem not documented On: 16-Sep-2018 7:40 Appointment; CORWIN GARCIA ANP-C Encounter Diagnosis: Problem not documented On: 30-Sep-2018 7:40 Appointment; CORWIN GARCIA ANP-C Encounter Diagnosis: Problem not documented On: 22-Oct-2018 7:40 Appointment; CORWIN GARCIA ANP-C Encounter Diagnosis: Problem not documented On: 24-Oct-2018 9:00 Appointment; ABBEY GRANDE P.A. Encounter Diagnosis: Problem not documented On: 28-Oct-2018 9:15 Appointment; NADIA DEL REAL NP Encounter Diagnosis: Problem not documented On: 14-Nov-2018 7:00 Appointment; CORWIN GARCIA ANP-C Encounter Diagnosis: Problem not documented On: 28-Nov-2018 7:40 Appointment; CORWIN GARCIA ANP-C Encounter Diagnosis: Problem not documented On: 05-Dec-2018 8:00
--- OUTSIDE RECORDS SUMMARY | 2019-02-10 19:03 | XMS REPORT ---
Author Author [facility] Address Unknown Phone Unavailable Care Team Providers Care Puddler [employer] Driving Name Role Phone Polo DALAL Unavailable Unavailable Problems This patient has no known problems. Allergies, Adverse Reactions, Alerts This patient has no known allergies or adverse reactions. Medications This patient has no known medications. Results Test Description Test Time Test Comments Text Results Atomic Results Result Comments CT ABD/PEL WO CONTRAST-HOPD 2018-09-13 21:35:00 [place] [id number] Patient Name: KATLYN BULLARD MR #: [id number] : 1965 Age/Sex: 53/F Req #: [id number] Adm Physician: Ordered by: DOMENICA DALAL MD Report #: [id number] Location: [facility] Room/Bed: Procedure: [id number] HOPD/CT ABD/PEL WO CONTRAST-HOPD Exam Date: 09/13/18 Exam Time: 2104 REPORT STATUS: Signed EXAM: CT Abdomen and Pelvis WITHOUT contrast INDICATION: Left flank pain for 2 to 3 days. [id number] COMPARISON: None. TECHNIQUE: Abdomen and pelvis were scanned utilizing a multidetector helical scanner from the lung base to the pubic symphysis without administration of IV contrast. Absence of intravenous contrast decreases sensitivity for detection of focal lesions and vascular pathology. Coronal and sagittal reformations were obtained. Routine protocol was performed. IV CONTRAST: None ORAL CONTRAST: Water COMPLICATIONS: None RADIATION DOSE: Total DLP: 835.9 mGy*cm Estimated effective dose: (DLP x 0.015 x size factor) mSv CTDIvol has been reviewed. It is below the limits set by the Radiation Protocol Committee (RPC). Dose modulation, iterative reconstruction, and/or weight based adjustment of the mA/kV was utilized to reduce the radiation dose to as low as reasonably achievable. FINDINGS: LINES and TUBES: None. LOWER THORAX: Unremarkable HEPATOBILIARY: Hypoattenuation of the liver measuring 27 Hounsfield units, compatible with steatosis. No focal hepatic lesions. No biliary ductal dilation. GALLBLADDER: Not well-visualized, possibly contracted. SPLEEN: No splenomegaly. PANCREAS: No focal masses or ductal dilatation. ADRENALS: No adrenal nodules KIDNEYS/URETERS: No hydronephrosis. No cystic or solid mass lesions. No stones. GI TRACT: No abnormal distention, wall thickening, or evidence of bowel obstruction. There are diverticula within the colon without evidence of diver ticulitis. Appendix is normal. PELVIC ORGANS/BLADDER: Unremarkable. LYMPH NODES: No lymphadenopathy. VESSELS: Unremarkable. PERITONEUM / RETROPERITONEUM: No free air or fluid. BONES: There are degenerative changes in the lumbar spine. SOFT TISSUES: Fat-containing infraumbilical hernia 3.9 x 4.4 x 4.9 cm sac and 1.5 x 2 cm neck without stranding to suggest granulation. No bowel seen within. IMPRESSION: No acute abnormalities. Hepatic steatosis. Colonic diverticulosis. Signed by: DR. Garret Espinosa MD on 09/13/2018 9:42 PM Dictated By: GARRET ESPINOSA MD 41 Transcribed By: LISA on 09/13/182141 COPY TO: DOMENICA DALAL MD
[2019-02-10] MEDS ORDERED: IPRATROPIUM BROMIDE 0.02% 2.5 ML NEB NEB STA (19:22)
[2019-02-10] MEDS ORDERED: ALBUTEROL SULF 0.083% NEB SOLN 3 ML NEB NEB STA (19:22)
[2019-02-10] MEDS ORDERED: DEXAMETHASONE SOD PHOS 10 MG/1 ML VIAL IM NR ×2 (19:30→21:15)
[2019-02-10] MEDS ORDERED: ACETAMINOPHEN/CODEINE ELIX 120-12 MG/5 ML UDC PO NR ×2 (19:30→21:15)
[2019-02-10] MEDS ORDERED: LISINOPRIL 10 MG TAB PO NR (19:30)
--- NOTE | 2019-02-10 19:50 | Diagnostic Imaging Report ---
EXAMINATION: PA and lateral views of the chest. COMPARISON: None CLINICAL HISTORY: Cough, flu DISCUSSION: Lines/tubes: None. Lungs: The lungs are well inflated and clear. No pneumonia or pulmonary edema. Pleura: No pleural effusion or pneumothorax. Heart and mediastinum: The cardiomediastinal silhouette is normal. Bones and soft tissues: No acute bony abnormalities. IMPRESSION: No acute cardiopulmonary abnormalities. Signed by: Dr. Joseph Burris M.D. on 02/10/2019 7:47 PM
[2019-02-10] MEDS: LISINOPRIL 10 MG TAB PO NR ×2 (21:34→21:49)
--- NOTE | 2019-02-10 21:38 | NUR ---
REPORTED TO PATIENT THAT SHE IS NOT ADVISED TO DRIVE HOME DUE TO TYLENOL ELEXIR, PATIENT STATES SHE WILL GET A RIDE FROM FRIEND
[2019-02-10 22:15] VITALS: BP 132/63
== END 2019-02-10 22:22 | disposition home or self-care (01) ==
LOC: ER 19:00
DX: R05 Cough (principal); J20.9 Acute bronchitis, unspecified; I10 Essential (primary) hypertension; E03.9 Hypothyroidism, unspecified; Z85.89 Personal history of malignant neoplasm of other organs and systems
CPT/HCPCS: 71046; 94644; 99284; J1100

== ENCOUNTER 2020-11-02 15:19 | Emergency (ER) | payer BC ==
[~2020-11-02] VITALS: Ht 162.6 cm; Wt 126.1 kg
[2020-11-02] MEDS ORDERED: ACETAMINOPHEN 325 MG TAB ONE (15:56)
[2020-11-02] MEDS ORDERED: ACETAMINOPHEN 325 MG TAB PO ONE (16:00)
== END 2020-11-02 17:34 | disposition home or self-care (01) ==
LOC: ER 15:35
DX: R50.9 Fever, unspecified (principal); T50.Z95A Adverse effect of other vaccines and biological substances, initial encounter; I10 Essential (primary) hypertension; E78.5 Hyperlipidemia, unspecified; E03.9 Hypothyroidism, unspecified; Z85.42 Personal history of malignant neoplasm of other parts of uterus
CPT/HCPCS: 99282